=== PATIENT | male | born 1935 | race Caucasian/White ===

== ENCOUNTER 2018-01-25 10:00 | Emergency (ER) | payer MEDICARE, MEDICAID ==
[~2018-01-25] VITALS: Ht 154.9 cm; Wt 58.2 kg
[~2018-01-25 10:00] MED LIST: FINA5TAB41 PO; OMEP20TA25 PO
[2018-01-25] MEDS ORDERED: TADA5TAB PO (10:22)
[2018-01-25] MEDS ORDERED: HYDROCODONE/ACETAMINOPHEN 5-325 MG TABLET PO ONE (11:00)
[2018-01-25 12:15] VITALS: BP 136/72
== END 2018-01-25 12:25 | disposition home or self-care (01) ==
LOC: EMS 10:01
DX: M19.90 Unspecified osteoarthritis, unspecified site (principal); M25.541 Pain in joints of right hand; M25.542 Pain in joints of left hand; Z76.0 Encounter for issue of repeat prescription
CPT/HCPCS: 99283

== ENCOUNTER 2018-10-05 23:20 | Emergency (ER) | payer OTHER, MEDICAID ==
[~2018-10-05] VITALS: Ht 152.4 cm; Wt 58.2 kg
[~2018-10-05 23:20] MED LIST changes: -FINA5TAB41 PO; +TADA5TAB PO
[2018-10-06 01:18] VITALS: BP 149/86
[2018-10-06] MEDS ORDERED: NAPROXEN 250 MG TABLET PO ONE (01:30)
== END 2018-10-06 01:43 | disposition home or self-care (01) ==
LOC: EMS 23:21
DX: M13.862 Other specified arthritis, left knee (principal)